=== PATIENT | female | born 1995 ===

== ENCOUNTER 2021-03-14 16:12 | Inpatient (IN) | payer OTHER ==
[2021-03-14] MEDS ORDERED: ONDANSETRON 4 MG/2 ML INJ ONE ×2 (17:35)
--- NOTE | 2021-03-14 17:50 | Anesthesia Day of Surgery ---
Anesthesia Day of Surgery - Day of Surgery Patient Examined: Yes Patient H&P Reviewed: Yes Patient is NPO: Yes Beta Blockers: No Cardiac Clearance: No Pulmonary Clearance: No Boaz's Test: Negative
[2021-03-14] MEDS ORDERED: NALOXONE 0.4 MG/1 ML INJ IV PRN ×2 (17:54→23:43)
[2021-03-14] MEDS ORDERED: HYDROmorphone 1 MG/1 ML INJ IV PRN (17:54)
[2021-03-14] MEDS ORDERED: ONDANSETRON 4 MG/2 ML INJ IV PRN (17:54)
[2021-03-14] MEDS ORDERED: MORPHINE 4 MG/1 ML INJ IV PRN (17:54)
--- NOTE | 2021-03-14 17:54 | Anesthesia Consultation ---
Anesthesia Consult and Med Hx Date of service: 03/14/21 - Airway Anesthetic Teeth Evaluation: Poor ROM Head & Neck: Adequate Mental/Hyoid Distance: Adequate Mallampati Class: Class III Intubation Access Assessment: Probably Good - Pulmonary Exam CTA: Yes - Cardiac Exam Cardiac Exam: RRR - Pre-Operative Health Status ASA Pre-Surgery Classification: ASA3 Proposed Anesthetic Plan: General, Spinal - Pulmonary Hx Smoking: Yes (stop 38 wks ago, 1/2 pk/wk for 13yrs) Hx Asthma: No Hx Respiratory Symptoms: No SOB: No COPD: No Home Oxygen Therapy: No Hx Pneumonia: No Hx Sleep Apnea: No - Cardiovascular System Hx Hypertension: No Hx Coronary Artery Disease: No Hx Heart Attack/AMI: No Hx Angina: No Hx Percutaneous Transluminal Coronary Angioplasty (PTCA): No Hx Cardia Arrhythmia: No Hx Pacemaker: No Hx Internal Defibrillator: No Hx Valvular Heart Disease: No Hx Heart Murmur: No Hx Peripheral Vascular Disease: No - Central Nervous System Hx Neuromuscular Disorder: No Hx Seizures: No CVA: No Hx Back Pain: Yes Hx Psychiatric Problems: No - Gastrointestinal Hx Ulcer: No Hx Gastroesophageal Reflux Disease: Yes - Endocrine Hx Renal Disease: No Hx End Stage Renal Disease: No Hx Cirrhosis: No Hx Liver Disease: No Hx Insulin Dependent Diabetes: No Hx Non-Insulin Dependent Diabetes: No Hx Thyroid Disease: No Hx Hypothyroidism: No Hx Hyperthyroidism: No - Hematic Hx Anemia: No Hx Sickle Cell Disease: No - Other Systems Hx Alcohol Use: No Hx Substance Use: No Hx Cancer: No Hx Obesity: Yes
[2021-03-14] MEDS ORDERED: OXYTOCIN DRIP 30 UNITS/500 ML BAG IV SCH ×2 (18:00→23:55)
[2021-03-14 18:03] LABS: Basophils % (Auto) 0.4 % (0.0-1.8); Eosinophils # (Auto) 0.1 K/mm3 (0.0-0.4); Hematocrit 36.1 % (30.3-42.9); Hemoglobin 11.9 gm/dl (10.1-14.3); Lymphocytes # (Auto) 2.5 K/mm3 (1.2-5.4); Lymphocytes % (Auto) 22.7 % (13.4-35.0); Mean Corpuscular HGB Conc 33 % (30-34); Mean Corpuscular Volume 85 fl (79-97); Monocytes # (Auto) 0.5 K/mm3 (0.0-0.8); Monocytes % (Auto) 4.8 % (0.0-7.3); Platelet Count 203 K/mm3 (140-440); Red Blood Count 4.27 M/mm3 (3.65-5.03); Red Cell Distribution Width 15.9 % (13.2-15.2)
[2021-03-14] MEDS: LACTATED RINGERS 1,000 ML IV SCH ×3 (18:43→20:10)
[2021-03-14] MEDS ORDERED: METOCLOPRAMIDE 10 MG/2 ML INJ IV ONE (19:00)
[2021-03-14] MEDS ORDERED: FAMOTIDINE 20 MG/2 ML INJ IV ONE (19:00)
[2021-03-14] MEDS ORDERED: BICITRA ORAL LIQD 30ML PO ONE (19:00)
[2021-03-14] MEDS ORDERED: ceFAZolin/STERILE WATER 2 GM/20 ML SYRINGE IV ONE (19:30)
[2021-03-14] MEDS ORDERED: WATER FOR IRRIG STERILE 1,500 ML BOTTLE IR ONE (19:31)
[2021-03-14] MEDS ORDERED: SODIUM CHLORIDE 0.9% IRR 1,500 ML BOTTLE IR ONE (19:31)
--- NOTE | 2021-03-14 20:13 | History and Physical Report ---
History of Present Illness Date of examination: 03/14/21 Date of admission: 03/14/21 16:12 Chief complaint: I am here for my History of present illness: Patient is a 26-year-old 2 para 1 who presents today with gestational age at 38-2/7 weeks. Patient was seen at [facility] earlier today and fetus was found to have anhydramnios along with IUGR. Per Dr. Dodson imminent delivery was recommended. Patient has a previous x1, therefore we will proceed with repeat section on this evening. Patient her course been complicated by morbid obesity and IUGR. Past History Past Medical History: no pertinent history Past Surgical History: section Family/Genetic History: none Social history: single - Obstetrical History Expected Date of Delivery: 03/26/21 Actual Gestation: 38 Week(s) 2 Day(s) : 2 Number of Living Children: 1 Medications and Allergies Allergies Allergy/AdvReac Type Severity Reaction Status Date / Time No Known Allergies Allergy Unverified 03/14/21 16:29 Active Meds: Active Medications Hydromorphone HCl (Hydromorphone 1 Mg/1 Ml Inj) 0.5 mg IV Q4H PRN PRN Reason: breakthrough pain > 7/10 Lactated Ringer's (Lactated Ringers) 1,000 mls @ 2,250 mls/hr IV PREOP JAHAIRA Stop: 03/15/21 18:27 Last Admin: 03/14/21 19:12 Dose: 2,250 mls/hr Documented by: Oxytocin/Sodium Chloride (Pitocin/Ns 30 Unit/500ml) 30 units in 500 mls @ 0 mls/hr IV TITR JAHAIRA; Protocol Stop: 03/14/21 23:59 Morphine Sulfate (Morphine 4 Mg/1 Ml Inj) 2.5 mg IV Q15M PRN PRN Reason: BREAK Naloxone HCl (Naloxone 0.4 Mg/1 Ml Inj) 0.2 mg IV Q2MIN PRN PRN Reason: Res Rate </= 8 or 02 SAT < 92% Ondansetron HCl (Ondansetron 4 Mg/2 Ml Inj) 4 mg IV Q8H PRN PRN Reason: Nausea And Vomiting Sodium Chloride (Sodium Chloride 0.9% 10 Ml Flush Syringe) 10 ml IV PRN JAHAIRA Review of Systems All systems: negative Constitutional: weight gain Eyes: deferred Ears, nose, mouth and throat: deferred Genitourinary: contractions - Vital Signs Vital signs: Vital Signs Pulse Pulse Ox 66 97 03/14/21 16:47 03/14/21 16:47 Temp Pulse Resp BP Pulse Ox 98.5 F 65 20 125/66 98 03/14/21 16:58 03/14/21 20:02 03/14/21 16:58 03/14/21 16:58 03/14/21 20:02 - Physical Exam Breasts: Positive: deferred Cardiovascular: Regular rate, Normal S1, Normal S2 Lungs: Positive: Clear to auscultation, Normal air movement Abdomen: Positive: normal appearance, soft, normal bowel sounds. Negative: distention, tenderness Genitourinary (Female): Positive: normal external genitalia, normal perenium Vulva: both: normal Vagina: Positive: normal moisture. Negative: discharge Cervix: Negative: lesion, discharge Uterus: Positive: normal size, normal contour Adnexa: both: normal Anus/Rectum: Positive: normal perianal skin, heme negative. Negative: rectal mass, hemorrhoids Extremities: Deep Tendon Reflex Grade: Normal +2 - Obstetrical FHR: auscultation normal Cervical Dilatation: 0 Cervical Effacement Percentage: 30 station: -3 Uterine Contraction Intensity: Mild Results Result Diagrams: 03/14/21 17:40 Abnormal lab results 03/14/21 Range/Units 17:40 RDW 15.9 H (13.2-15.2) % Seg Neutrophils % 71.1 H (40.0-70.0) % Seg Neutrophils # 7.8 H (1.8-7.7) K/mm3 All other labs normal. Assessment and Plan IUP at 38-2/7 weeks here for a repeat section secondary to anhydramnios IUGR. We will proceed with tonight.
[2021-03-14] MEDS ORDERED: PHENYLEPHRINE/NS 1,000 MCG/10 ML SYRINGE (OR USE) IV ONE (20:42)
[2021-03-14] MEDS ORDERED: KETOROLAC 30 MG/1 ML INJ ONE (20:49)
--- NOTE | 2021-03-14 21:44 | Operative Report ---
Operative Report Operative Report: Preoperative diagnosis: Intrauterine at 38-2/7 weeks 2. Previous x1 3. Anhydramnios Postoperative diagnosis: Same with velamentous cord insertion Procedure: Repeat low transverse section, Surgeon: Dr. Indira Cruz EBL: 400 cc Urine output: 200 mL IV fluids: 800 mL Findings: Viable male in the vertex position weight 6 lbs. 2 oz. 2780 g Apgars 8 and 9. Otherwise normal pelvic anatomy Specimens: Placenta to pathology Complications: None Procedure: The patient was admitted to the OR with IV running and in place. She was properly identified as herself. She was given spinal anesthesia in the OR w ithout difficulty. She was placed in the dorsal supine position with a leftward tilt. A Earl catheter was inserted. She was then prepped and draped in the normal sterile fashion. An Allis test was used to confirm adequate anesthesia. Once confirmed, the incision was made with the scalpel and carried to the underlying fascia using the scalpel and the Bovie. The fascia was incised in the midline and incision was extended bilaterally using the curved Hendrix scissors. The fascia was then dissected from the underlying rectus muscles in a series of sharp and blunt dissection using the Hendrix scissors. Muscles were in the in the midline sharply using Metzenbaum scissors and the peritoneum was entered into bluntly using the surgeon's fingers. The large Aric retractor was then inserted into the incision. Following this the bladder flap was created. Hysterotomy incision was then made in the scalpel. Upon uterine entry, there was no sign of amniotic fluid. The infant was then delivered without difficulty. His mouth and nose were suctioned on the field. The cord was clamped and cut and he was handed to the waiting NICU personnel. The uterus was then exteriorized and cleared of all clots and debris. The hysterotomy incision was then closed in a running locked fashion using 0 Vicryl in 2 layers. The abdomen was then copiously irrigated with warm normal saline. . Following this the uterus was replaced into the abdominal cavity. The Aric was then removed. At this point the muscles were reapproximated in the midline using individual sutures of 0 Vicryl. Following this the fascia was closed in a running fashion using 0 Vicryl. Tissue was then copiously irrigated. Retention sutures were placed in the subcutaneous fat tissue Skin was closed in a running fashion using 3-0 Monocryl. The sponge lap needle and instrument counts were correct 2. The patient tolerated the procedure well. She was taken to recovery in stable condition.
--- NOTE | 2021-03-14 21:45 | Procedure Note ---
OB Delivery Note - Delivery Date of Delivery: 03/14/21 Surgeon: SUNNI BRENNAN Estimated blood loss: 500cc - Section Preop diagnosis: repeat , other (Anhydramnios) Postop diagnosis: same section procedure: repeat low transverse Disposition: PACU Complications: none Narrative: See operative report - A at 1 minute: 8 at 5 minutes: 9 Gender: Male (2780g)
--- NOTE | 2021-03-14 21:54 | Progress Note ---
Spinal Anesthesia Block - Spinal Anesthesia Block Start Time: 20:30 Stop Time: 20:36 Performed by:: DIMITRI FELIZ Procedure: Patient IDed, H&P reviewed, all questions and concerns were answered, and consent was signed. Timeout was performed at bedside. Patient in sitting position. Sterile prep and drape was performed. [3] ml of 1% lidocaine skin wheal at L[3]- L [4]. Needle introducer advanced. 25 gauge spinal needle advanced. Clear, free flowing CSF. negative blood, negative paresthesia. Spinal dose given. All needles removed. Patient tolerated procedure.
[2021-03-14] MEDS ORDERED: ceFAZolin/STERILE WATER 2 GM/20 ML SYRINGE IV NR (23:30)
[2021-03-14] MEDS ORDERED: LANOLIN/ZINC/DIMETHICONE (LANSINOH) 7 GM TP PRN (23:55)
[2021-03-14] MEDS ORDERED: WITCH HAZEL/ GLYCERIN PAD TP PRN (23:55)
[2021-03-14] MEDS ORDERED: IBUPROFEN 800 MG TAB PO PRN (23:55)
[2021-03-14] MEDS ORDERED: ACETAMINOPHEN 325 MG TAB PO PRN (23:55)
[2021-03-14] MEDS: D5W/LACTATED RINGERS 1,000 ML IV SCH (23:59)
[2021-03-15] MEDS: MORPHINE 4 MG/1 ML INJ IV PRN ×2 (05:20→11:56)
[2021-03-15] MEDS: oxyCODONE /ACETAMINOPHEN 5-325MG TAB PO PRN ×2 (07:35→16:38)
[2021-03-15] MEDS: D5W/LACTATED RINGERS 1,000 ML IV SCH (07:36)
--- NOTE | 2021-03-15 08:43 | Progress Note ---
Assessment and Plan - Patient Problems (1) Status post repeat low transverse section Current Visit: Yes Status: Acute Plan to address problem: Continue routine PP orders Keep dressing clean and dry, remove on POD#2 after showering Anticipate d/c home in 24-48 hrs if stable (2) Morbid obesity with BMI of 50.0-59.9, adult Current Visit: Yes Status: Acute Subjective - Subjective Date of service: 03/15/21 Principal diagnosis: S/P repeat C/S; POD#1 Interval history: Patient is a 26-year-old 2 para 1 who presents today with gestational age at 38-2/7 weeks. Patient was seen at [facility] earlier today and fetus was found to have anhydramnios along with IUGR. Per Dr. Dodson imminent delivery was recommended. Patient has a previous x1, therefore we will proceed with repeat section on this evening. Patient her course been compl icated by morbid obesity and IUGR. Patient reports: appetite normal, pain well controlled (with medications), no voiding normally (benito catheter inplace), no flatus, no bowel movement, no ambulating normally (mechanical compression hose in place) [place]: doing well, bottle feeding Objective - Vital Signs Latest vital signs: Vital Signs Temp Pulse Resp BP BP Pulse Ox Pulse Ox 03/15/21 08:00 98 03/15/21 07:55 97.8 F 70 22 120/62 98 03/15/21 05:50 18 03/15/21 05:20 98.2 F 62 18 129/55 96 03/15/21 00:00 99 03/14/21 23:26 98.2 F 59 L 18 120/58 98 03/14/21 22:50 52 L 16 135/78 99 03/14/21 22:35 61 16 124/71 99 03/14/21 22:20 63 20 106/64 100 03/14/21 22:05 63 13 105/46 98 03/14/21 22:00 59 L 17 111/49 99 03/14/21 21:55 68 13 103/50 98 03/14/21 21:50 98.2 F 63 12 125/98 97 03/14/21 20:02 65 98 03/14/21 19:57 84 98 03/14/21 19:52 67 98 03/14/21 19:47 68 98 03/14/21 19:42 71 98 03/14/21 19:37 69 97 03/14/21 19:32 73 97 03/14/21 19:27 80 98 03/14/21 19:22 72 99 03/14/21 19:17 89 99 03/14/21 19:12 78 99 03/14/21 19:07 78 99 03/14/21 19:02 77 99 03/14/21 18:57 73 99 03/14/21 18:52 74 98 03/14/21 18:47 72 98 03/14/21 18:42 71 98 03/14/21 18:37 75 98 03/14/21 18:32 64 98 03/14/21 18:27 71 98 03/14/21 18:22 73 99 03/14/21 18:17 72 98 03/14/21 18:12 68 98 03/14/21 18:07 72 98 03/14/21 18:02 75 97 03/14/21 17:57 73 99 03/14/21 17:52 66 99 03/14/21 17:47 70 98 03/14/21 17:42 75 98 03/14/21 17:37 74 98 03/14/21 17:32 70 98 03/14/21 17:30 84 94 03/14/21 17:28 97 03/14/21 17:27 69 97 03/14/21 17:22 74 99 03/14/21 17:17 72 98 03/14/21 17:12 76 97 03/14/21 17:07 74 97 03/14/21 17:02 70 98 03/14/21 16:58 98.5 F 75 20 125/66 98 03/14/21 16:57 73 98 03/14/21 16:52 74 98 03/14/21 16:48 70 125/66 03/14/21 16:47 66 97 Intake and Output 03/14/21 03/15/21 03/15/21 23:59 07:59 15:59 Intake Total 3000 952.083 120 Output Total 430 Balance 2570 952.083 120 Intake: IV 3000 952.083 D5lr 1,000 ml @ 125 mls/ 952.083 hr IV DIRECT JAHAIRA Rx#: [id number] Lactated Ringers 1,000 ml 2000 @ 2250 mls/hr IV PREOP [facility] Rx#:[id number] Oral 120 Output: Urine 430 Uretheral (Benito) 170 Other: Total, Intake Amount 120 Weight 122.47 kg - Exam Breasts: Present: normal Cardiovascular: Present: Regular rate Lungs: Present: Normal air movement Abdomen: Present: soft, tenderness Uterus: Present: firm, fundal height below umbilicus (U-1) Extremities: Present: edema Deep Tendon Reflex Grade: Normal +2 Incision: Present: dressed (no shadow drainge or bleeding noted) - Labs Labs: Abnormal lab results 03/14/21 Range/Units 17:40 RDW 15.9 H (13.2-15.2) % Seg Neutrophils % 71.1 H (40.0-70.0) % Seg Neutrophils # 7.8 H (1.8-7.7) K/mm3
[2021-03-15] MEDS: FERROUS SULFATE 325 MG TAB PO SCH (10:20)
[2021-03-15 11:03] LABS: Hematocrit 31.4 % (30.3-42.9); Hemoglobin 10.2 gm/dl (10.1-14.3)
--- NOTE | 2021-03-15 19:29 | Post Anesthesia Evaluation ---
- Post Anesthesia Evaluation Patient Participated: Yes Airway Patent: Yes Stable Respiratory Function: Yes Nausea/Vomiting: No Temp > 96.8F: Yes Pain Manageable: Yes Adequeate Hydration: Yes Anesthesia Complications: No Block Receding Appropriately: Yes Patient on Ventilator: No
[2021-03-16] MEDS: oxyCODONE /ACETAMINOPHEN 5-325MG TAB PO PRN ×2 (06:45→09:48)
--- NOTE | 2021-03-16 07:48 | Progress Note ---
Assessment and Plan A: POD#2 s/p repeat section at term Morbid Obesity P: Routine care Anticipate discharge later today with follow up in 2 wks for incision check Subjective - Subjective Date of service: 03/16/21 Principal diagnosis: S/P repeat C/S; POD#2, Morbid Obesity Interval history: No overnight events, passing flatus Patient reports: appetite normal, voiding normally, pain well controlled, flatus, ambulating normally, no bowel movement : doing well Objective - Vital Signs Latest vital signs: Vital Signs Temp Pulse Resp BP Pulse Ox Pulse Ox 03/16/21 06:45 18 03/16/21 01:10 98.1 F 96 H 20 112/55 96 03/15/21 20:00 98 03/15/21 16:54 98.6 F 72 20 119/58 100 03/15/21 12:08 97.9 F 66 22 102/52 100 03/15/21 08:00 98 03/15/21 07:55 97.8 F 70 22 120/62 98 Intake and Output 03/15/21 03/16/21 03/16/21 22:59 06:59 14:59 Intake Total 840 Output Total 300 Balance 540 Intake: Oral 480 Intake, Free Water 360 Output: Urine 300 Void 300 Other: Total, Intake Amount 240 Total, Output Amount 300 # Voids Void 1 1 - Exam Breasts: Present: deferred Abdomen: Present: soft (obese ) Uterus: Present: fundal height at umbilicus Extremities: Present: edema (trace ) Incision: Present: dressed
--- NOTE | 2021-03-16 07:52 | Discharge Summary ---
Providers - Providers Date of Admission: 03/14/21 16:12 Date of discharge: 03/16/21 Attending physician: MIKE JARAMILLO Primary care physician: ENRIQUE KERR Hospitalization Reason for admission: section, other (IUGR, Anhydramnios ) Delivery: Procedure: section, repeat low transverse Procedure details: Please see operative report Incision: intact Other procedures: none complications: none Discharge diagnosis: IUP at term delivered [place] baby: male Hospital course: Pt was admitted for repeat section at 38 wks secondary to previous , IUGR and anhydramnios. She tolerated the procedure well. Her postoperative course was uncomplicated and she met discharge criteria on POD#2. She will follow up in 2 wks for an incision check. Condition at discharge: Stable Disposition: 01 HOME / SELF CARE / HOMELESS - Discharge Diagnoses (1) IUGR (intrauterine growth restriction) Status: Acute (2) Anhydramnios with delivery during current hospitalization Status: Acute (3) Term of male Status: Acute (4) Morbid obesity with BMI of 50.0-59.9, adult Status: Acute (5) Status post repeat low transverse section Status: Acute Plan - Discharge Medications Prescriptions: Ibuprofen [Motrin] 800 mg PO Q8HR PRN #30 tablet PRN Reason: Pain, Moderate (4-6) oxyCODONE /ACETAMINOPHEN [Percocet 5/325] 1 tab PO Q6HR PRN #30 tablet PRN Reason: Pain - Provider Discharge Summary Activity: routine, no sex for 6 weeks, no heavy lifting 4 weeks, no strenuous exercise Diet: routine Instructions: routine Additional instructions: [] Smoking cessation referral if applicable(refer to patient education folder for contact #) [] Refer to [facility] Booklet Call your doctor immediately for: * Fever > 100.5 * Heavy vaginal bleeding ( >1 pad per hour) * Severe persistent headache * Shortness of breath * Reddened, hot, painful area to leg or breast * Drainage or odor from incision. * Keep incision clean and dry at all times and follow doctor's instructions regarding bathing/showering IF YOU WANT YOUR SON TO BE CIRCUMCISED, PLEASE SCHEDULE HIS APPT BEFORE HE IS ONE MONTH OLD. - Follow up plan Follow up: MARGY MURRELL CNM [Advanced Practice Nurse] - 14 Days (Please call to schedule an incision check )
[2021-03-16] MEDS: FERROUS SULFATE 325 MG TAB PO SCH (09:48)
[2021-03-17 00:35] VITALS: BP 143/71
== END 2021-03-16 22:45 | disposition home or self-care (01) | DRG 765 ==
LOC: APU 16:12 → OB 23:20
PROVIDERS: ADMIT Obstetrics & Gynecology; ATTEND Obstetrics & Gynecology
PROC: 10D00Z1 Extraction of Products of Conception, Low, Open Approach (ICD-10-PCS; principal; 2021-03-14)
DX: O36.5930 Maternal care for other known or suspected poor fetal growth, third trimester, not applicable or unspecified (principal); O41.03X0 Oligohydramnios, third trimester, not applicable or unspecified; O34.211 Maternal care for low transverse scar from previous cesarean delivery; Z3A.38 38 weeks gestation of pregnancy; E66.01 Morbid (severe) obesity due to excess calories; O99.214 Obesity complicating childbirth; O99.62 Diseases of the digestive system complicating childbirth; K21.9 Gastro-esophageal reflux disease without esophagitis; Z87.891 Personal history of nicotine dependence; Z20.822 Contact with and (suspected) exposure to COVID-19
CPT/HCPCS: 36415; 59025; 85014; 85018; 85025; 86850; 86900; 86901; 88307; 96360; 96361; 96374; 96375; 99211; G0378; G0463; J0690; J1885; J2270; J2370; J2405; J2590; J2765; J3490; J7120; J7121; U0003

== ENCOUNTER 2021-09-03 12:51 | Emergency (ER) | payer OTHER ==
[2021-09-03 13:54] VITALS: BP 143/86
--- NOTE | 2021-09-03 14:20 | Emergency Department Report ---
<JUVENAL GILL - Last Filed: 09/03/21 14:53> ED General Adult HPI - General Chief complaint: Nausea/Vomiting/Diarrhea Stated complaint: ABD PAIN/DIARRHEA Time Seen by Provider: 09/03/21 14:06 Source: patient Mode of arrival: Ambulatory Limitations: No Limitations - History of Present Illness Initial comments: This is 26-year-old female presents emerged department chief complaint of diarrhea and lower abdominal cramping that has been present over the past 2 days. She denies any bloody stools, melena, fever, chills, night sweats, headache, discoloration, chest pain or shortness of breath, weakness or any other associated symptoms. Severity scale (0 -10): 0 - Related Data Previous Rx's Medication Instructions Recorded Last Taken Type Ibuprofen [Motrin] 800 mg PO Q8HR PRN #30 tablet 03/16/21 Unknown Rx oxyCODONE /ACETAMINOPHEN [Percocet 1 tab PO Q6HR PRN #30 tablet 03/16/21 Unknown Rx 5/325] Diphenoxylate/Atropine [Lomotil] 1 tab PO Q4H PRN #9 09/03/21 Unknown Rx Ondansetron [Zofran Odt] 4 mg PO Q8HR PRN #30 tab.rapdis 09/03/21 Unknown Rx Allergies Allergy/AdvReac Type Severity Reaction Status Date / Time No Known Allergies Allergy Unverified 03/14/21 16:29 ED Review of Systems Comment: All other systems reviewed and negative Constitutional: denies: chills, fever Eyes: denies: eye pain, eye discharge, vision change ENT: denies: ear pain, throat pain Respiratory: denies: cough, shortness of breath, wheezing Cardiovascular: denies: chest pain, palpitations Endocrine: no symptoms reported Gastrointestinal: as per HPI, abdominal pain, diarrhea Genitourinary: denies: urgency, dysuria, discharge Musculoskeletal: denies: back pain, joint swelling, arthralgia Skin: denies: rash, lesions Neurological: denies: headache, weakness, paresthesias Psychiatric: denies: anxiety, depression Hematological/Lymphatic: denies: easy bleeding, easy bruising ED Past Medical Hx - Past Medical History Hx Hypertension: No Hx Heart Attack/AMI: No Hx Congestive Heart Failure: No Hx Diabetes: No Hx Deep Vein Thrombosis: No Hx Liver Disease: No Hx Renal Disease: No Hx Sickle Cell Disease: No Hx Seizures: No Hx Asthma: No Hx COPD: No Hx HIV: No - Surgical History Hx Pacemaker: No Hx Internal Defibrillator: No - Social History Smoking Status: Never Smoker - Medications Home Medications: Home Medications Medication Instructions Recorded Confirmed Last Taken Type Ibuprofen [Motrin] 800 mg PO Q8HR PRN #30 tablet 03/16/21 Unknown Rx oxyCODONE /ACETAMINOPHEN [Percocet 1 tab PO Q6HR PRN #30 tablet 03/16/21 Unknown Rx 5/325] Diphenoxylate/Atropine [Lomotil] 1 tab PO Q4H PRN #9 09/03/21 Unknown Rx Ondansetron [Zofran Odt] 4 mg PO Q8HR PRN #30 tab.rapdis 09/03/21 Unknown Rx ED Physical Exam - General Limitations: No Limitations General appearance: alert, in no apparent distress - Head Head exam: Present: atraumatic, normocephalic - Eye Eye exam: Present: normal appearance, PERRL, EOMI Pupils: Present: normal accommodation - ENT ENT exam: Present: normal exam, normal orophraynx, mucous membranes moist - Neck Neck exam: Present: normal inspection, full ROM. Absent: tenderness, meningismus - Respiratory Respiratory exam: Present: normal lung sounds bilaterally. Absent: respiratory distress, wheezes, rales, rhonchi, stridor, chest wall tenderness - Cardiovascular Cardiovascular Exam: Present: regular rate, normal rhythm, normal heart sounds. Absent: systolic murmur, diastolic murmur, rubs, gallop - GI/Abdominal GI/Abdominal exam: Present: soft, normal bowel sounds, other (Negative [place]'s point tenderness, negative Arguelles sign, no rebound or guarding). Absent: distended, tenderness, guarding, rebound, rigid - Extremities Exam Extremities exam: Present: normal inspection - Back Exam Back exam: Present: normal inspection - Neurological Exam Neurological exam: Present: alert, oriented X3 - Psychiatric Psychiatric exam: Present: normal affect, normal mood - Skin Skin exam: Present: warm, dry, intact, normal color. Absent: rash ED Medical Decision Making - Medical Decision Making Patient exam was benign. No tenderness palpation, no rebound or guarding. She had a and urinalysis ordered however states she no one to wait for this and want to go home. We will treat her symptomatically and recommend return precautions for any change or worsening symptoms. She verbalized understand the diagnosis, treatment and follow-up instructions all of her questions were answered. - Differential Diagnosis Enteritis, colitis, UTI ED Disposition Clinical Impression: History of diarrhea, Abdominal discomfort Disposition: 01 HOME / SELF CARE / HOMELESS Is pt being admited?: No Condition: Stable Instructions: Diarrhea, Adult, [id number] Prescriptions: Diphenoxylate/Atropine [Lomotil] 1 tab PO Q4H PRN #9 PRN Reason: Diarrhea Ondansetron [Zofran Odt] 4 mg PO Q8HR PRN #30 tab.rapdis PRN Reason: Nausea Referrals: PRIMARY CARE, [Primary Care Provider] - 3-5 Days [facility] [Provider Group] - 3-5 Days Forms: Work/School Release Form(ED) Time of Disposition: 14:54 <LYNN LANDIS - Last Filed: 09/03/21 18:39> ED Review of Systems ROS: Stated complaint: ABD PAIN/DIARRHEA Other details as noted in HPI ED Course Vital Signs 09/03/21 13:53 Temperature 98.1 F Pulse Rate 78 Respiratory 14 Rate Blood Pressure 143/86 [Right] O2 Sat by Pulse 100 Oximetry ED Medical Decision Making - Lab Data Vital Signs 09/03/21 13:53 Temperature 98.1 F Pulse Rate 78 Respiratory 14 Rate Blood Pressure 143/86 [Right] O2 Sat by Pulse 100 Oximetry Lab Results 09/03/21 Range/Units Unknown Urine Color Yellow (Yellow) Urine Turbidity Cloudy (Clear) Urine pH 5.0 (5.0-7.0) Ur Specific [place] 1.021 (1.003-1.030) Urine Protein 100 mg/dl (Negative) mg/dL Urine Glucose (UA) Neg (Negative) mg/dL Urine Ketones Neg (Negative) mg/dL Urine Blood Neg (Negative) Urine Nitrite Neg (Negative) Ur Reducing Substances Not Reportable Urine Bilirubin Neg (Negative) Urine Ictotest Not Reportable Urine Urobilinogen < 2.0 (<2.0) mg/dL Ur Leukocyte Esterase Neg (Negative) Urine WBC (Auto) 9.0 H (0.0-6.0) /HPF Urine RBC (Auto) 5.0 (0.0-6.0) /HPF U Epithel Cells (Auto) 60.0 H (0-13.0) /HPF Urine Bacteria (Auto) 2+ (Negative) /HPF Amorphous Crystals Few Urine Mucus Few /HPF Urine HCG, Qual Negative (Negative) Critical care attestation.: If time is entered above; I have spent that time in minutes in the direct care of this critically ill patient, excluding procedure time. ED Disposition Is pt being admited?: No Does the pt Need Aspirin: No
[2021-09-03 15:03] LABS: HCG Qualitative,Urine Negative (Negative)
[2021-09-03 16:47] LABS: Amorphous Crystals,Urine Few; Bacteria,Urine 2+ /HPF (Negative); Bilirubin,Urine NEG (Negative); Blood,Urine NEG (Negative); Color,Urine Yellow (Yellow); Mucus,Urine FEW /HPF; Urobilinogen,Urine < 2.0 mg/dL (<2.0)
== END 2021-09-03 15:30 | disposition home or self-care (01) ==
LOC: ED 12:51
DX: R10.30 Lower abdominal pain, unspecified (principal); R19.7 Diarrhea, unspecified
CPT/HCPCS: 81001; 81025; 87086; 99283